=== PATIENT | male | born 1950 | race Caucasian/White ===

== ENCOUNTER 2017-12-21 12:02 | Outpatient (CLI) | payer MEDICARE, OTHER | END 2017-12-21 12:04 | LOC: CARD 12:02 | PROVIDERS: ATTEND Internal Medicine Cardiovascular Disease | DX: I48.91 Unspecified atrial fibrillation (principal); I27.20 Pulmonary hypertension, unspecified; I05.1 Rheumatic mitral insufficiency; I73.9 Peripheral vascular disease, unspecified; I10 Essential (primary) hypertension; N18.5 Chronic kidney disease, stage 5; I77.0 Arteriovenous fistula, acquired; I50.9 Heart failure, unspecified | CPT/HCPCS: G0463 ==

== ENCOUNTER 2018-10-25 20:12 | Emergency (ER) | payer MEDICARE, OTHER ==
--- NOTE | 2018-10-25 20:32 | ED Physician Documentation ---
Fall - HPI Stated Complaint: left hip/shoulder pain Chief Complaint: Fall Additional Information: Patient presents to ED with complaints of left hip and left shoulder pain after slipping on the ice while walking his dog earlier today. He denies hitting his head or loss of consciousness. He is on Coumadin for Afib. Onset: today Where: home Context: slipped (on ice) Associated Symptoms:: no loss of consciousness Location of Pain/Injury: L shoulder, hip Injury to Right Extremity: none Injury to Left Extremity: shoulder - ROS CONST: no problems NEURO: denies: dizziness MS/SKIN/LYMPH: denies: weakness, numbness, neck pain, back pain, leg swelling EYES/ENT: none CVS/RESP: denies: chest pain, shortness of breath GI/: denies: problems urinating, nausea, vomiting - PAST HX Past History: A-Fib, COPD Allergies/Adverse Reactions: Allergies Allergy/AdvReac Type Severity Reaction Status Date / Time NSAIDS (Non-Steroidal AdvReac Renal Verified 10/25/18 20:34 Anti-Inflamma Insufficiency Contrast AdvReac Itchy Skin Uncoded 10/25/18 20:34 Home Medications: Ambulatory Orders Medication Instructions Recorded Carvedilol [Coreg] 25 mg PO BID u2 09/20/13 Clonidine HCl 0.1 mg PO BID PRN u2 09/20/13 Diltiazem HCl [Diltiazem 24hr Cd] 180 mg PO DAILY av 09/20/13 Orphenadrine Citrate [Norflex] 100 mg PO BID PRN #30 tab 10/25/18 Warfarin Sodium [Coumadin] 5 mg PO D 10/25/18 - SOCIAL HX Smoking History: cigarettes, greater than 1 pack/day Alcohol Use: none Drug Use: none - FAMILY HX Family History: none - REVIEWED ASSESSMENTS Nursing Assessment Reviewed: Yes Vitals Reviewed: Yes Progress - Progress Progress: 2 Blood pressure elevated at 163/113. Patient states he has not taken his evening blood pressure meds yet. ED Results Lab/Radiology - Radiology Radiology Impressions: Three views left shoulder Clinical history: Fall. Pain. Findings: Examination left shoulder in multiple views fails to demonstrate evidence of fracture, dislocation or other bone or joint pathology. Electronically signed on Oct 25, 2018 9:20:16 PM BENZENE STILL UTILITY OPERATOR by: Vince Leahy Two views of left hip Clinical history: Fall. Pain. Findings: Examination left hip in AP and frog-leg lateral views fails to demonstrate evidence of fracture or dislocation. There are metallic seeds overlying the prostate. There is no lytic or blastic lesion. Vascular calcification is demonstrated. Impression: 1. No fracture. Electronically signed on Oct 25, 2018 9:21:16 PM BENZENE STILL UTILITY OPERATOR by: Vince Leahy - Orders Orders: ED Orders Category Date Time Status LT HIP 2VIEW COMPLETE [RAD] Stat Exams 10/25/18 Ordered SHOULDER 2 VIEWS OR MORE [RAD] Stat Exams 10/25/18 Ordered Fall Physical Exam - Physical Exam General Appearance: no acute distress, alert Head: non-tender, no swelling, no obvious injury Neck: non-tender, painless ROM Eye: ALEK ENT: nml external inspection Resp/CVS: chest non-tender, breath sounds nml, no resp. distress. No: rib tenderness Abdomen: soft, normal bowel sounds Neuro: oriented x3, motor nml Back: normal inspection, no CVA tenderness, no vertebral tenderness Extremities: atraumatic, pelvis stable, other (left hip pain) Joint: joints nml, Nml gait/weight bearing - Vesta Coma Score Eyes Open: Spontaneous Speech: Oriented Motor: Obeys Commands Discharge Clincal Impression: Fall Qualifiers: Encounter type: initial encounter Qualified Code(s): W19.XXXA - Unspecified fall, initial encounter Prescriptions: Orphenadrine Citrate [Norflex] 100 mg PO BID PRN #30 tab PRN Reason: Spasms Referrals: Aicha Lozoya MD [Primary Care Provider] - 2 Days Comments: 1. Apply ice/heat to affected area as needed 2. Keep active 3. Follow up with PCP within 1 week. Condition: Stable Disposition: 01 HOME, SELF-CARE Decision to Admit: NO Date of Decison to Admit: 10/25/18 Decision Time: 21:28
[2018-10-25] MEDS ORDERED: HYDROcodone /APAP 5/325 1 EACH TABLET PO ONE (20:35)
[2018-10-25] MEDS ORDERED: ORPHENADRINE CITRATE 60 MG/2 ML ML IM ONE (21:25)
--- NOTE | 2018-10-25 21:42 | Diagnostic Imaging Report ---
IDALIA FORD [facility] [address] [facility] [address] [id number] Report Submission Date: Oct 25, 2018 9:21:16 PM RAMP FLIGHT ATTENDANT Patient Study Name: AJ BOCANEGRA Date: Oct 25, 2018 8:40:06 PM RAMP FLIGHT ATTENDANT Modality Type: DX Gender: M Description: PELVIS : 52 Institution: [facility] Physician: IDALIA FORD Two views of left hip Clinical history: Fall. Pain. Findings: Examination left hip in AP and frog-leg lateral views fails to demonstrate evidence of fracture or dislocation. There are metallic seeds overlying the prostate. There is no lytic or blastic lesion. Vascular calcification is demonstrated. Impression: 1. No fracture. Electronically signed on Oct 25, 2018 9:21:16 PM RAMP FLIGHT ATTENDANT by: Vince BAUER
[2018-10-25 21:53] VITALS: BP 161/113
--- NOTE | 2018-10-26 05:28 | Diagnostic Imaging Report ---
IDALIA FORD [facility] [address] [facility] [address] [id number] Report Submission Date: Oct 25, 2018 9:20:16 PM PLAYGROUND EQUIPMENT ERECTOR Patient Study Name: AJ BOCANEGRA Date: Oct 25, 2018 8:31:56 PM PLAYGROUND EQUIPMENT ERECTOR Modality Type: DX Gender: M Description: SHOULDER : 52 Institution: [facility] Physician: IDALIA FORD Three views left shoulder Clinical history: Fall. Pain. Findings: Examination left shoulder in multiple views fails to demonstrate evidence of fracture, dislocation or other bone or joint pathology. Electronically signed on Oct 25, 2018 9:20:16 PM PLAYGROUND EQUIPMENT ERECTOR by: Vince BAUER
== END 2018-10-25 21:40 | disposition home or self-care (01) ==
LOC: ED 20:12
DX: M25.552 Pain in left hip (principal); M25.512 Pain in left shoulder; W00.9XXA Unspecified fall due to ice and snow, initial encounter; Y93.K1 Activity, walking an animal; Y92.009 Unspecified place in unspecified non-institutional (private) residence as the place of occurrence of the external cause
CPT/HCPCS: 73030; 73502; 96372; 99283; 99284; A9270; J2360

== ENCOUNTER 2019-12-04 20:11 | Emergency (ER) | payer MEDICARE, OTHER ==
--- NOTE | 2019-12-04 20:12 | ED Physician Documentation ---
General Adult - HISTORIAN Historian: patient - HPI Stated Complaint: voiding blood Chief Complaint: General Adult Onset: hours Timing: still present Severity: moderate Further Comments: yes (Pt is a 69 yo male who is voiding large amounts of blood. Pt is a dialysis pt with hx kidney transplant 10 years ago. Pt also has hx afib, HTN, and is on coumadin. 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 Large amont of blood on sidewalk outside ER door when pt got out of car.) - ROS CONST: weakness EYES/ENT: none CVS/RESP: other (tachycardia) MS/SKIN/LYMPH: none - PAST HX Past History: other (Hemodialysis, [facility] transplant 10 yrs ago in [place], [place], afib, HTN) Surgeries/Procedures: other (kidney transplant) Allergies/Adverse Reactions: Allergies Allergy/AdvReac Type Severity Reaction Status Date / Time NSAIDS (Non-Steroidal AdvReac Renal Verified 10/25/18 20:34 Anti-Inflamma Insufficiency Contrast AdvReac Itchy Skin Uncoded 10/25/18 20:34 Home Medications: Ambulatory Orders Medication Instructions Recorded Carvedilol [Coreg] 25 mg PO BID u2 09/20/13 Clonidine HCl 0.1 mg PO BID PRN u2 09/20/13 Diltiazem HCl [Diltiazem 24hr Cd] 180 mg PO DAILY av 09/20/13 Orphenadrine (Nf) [Norflex] 100 mg PO BID PRN #30 tab 10/25/18 Warfarin Sodium [Coumadin] 5 mg PO D 10/25/18 - SOCIAL HX Smoking History: other (unk) - FAMILY HX Family History: No - VITAL SIGNS Vital Signs: Vital Signs Temp Pulse Resp BP Pulse Ox 161/113 10/25/18 21:51 - REVIEWED ASSESSMENTS Nursing Assessment Reviewed: Yes Vitals Reviewed: Yes Progress - Progress Progress: NS 2 L IVF transfer to . Hosp. Dr. Correa - EKG/XRAY/CT EKG: rhythm (afib, tachycardia, VG=309, ST & T wave changes, non-specific.) General Adult Physical Exam - PHYSICAL EXAM GENERAL APPEARANCE: moderate distress EENT: pharynx normal NECK: normal inspection, supple RESPIRATORY: no resp distress, chest non-tender, breath sounds normal CVS: irregularly irregular rhy, tachycardia ABDOMEN: soft, normal bowel sounds, other (large volume hematuria) BACK: normal inspection, no CVA tenderness SKIN: pallor EXTREMITIES: non-tender, normal range of motion, no evidence of injury, no edema NEURO: oriented X3, motor nml, sensation nml Discharge Clincal Impression: massive hematuria Referrals: Aicha Lozoya MD [Primary Care Provider] - Condition: Fair Disposition: 02 XFER SHT-TRM HOSP Decision to Admit: NO Decision Time: 20:50
[2019-12-04] MEDS ORDERED: 0.9 % SODIUM CHLORIDE 1,000 ML IV ONE ×2 (20:20→20:31)
[2019-12-04] MEDS ORDERED: 0.9 % SODIUM CHLORIDE 2,000 ML IV ONE (20:30)
[2019-12-04 20:38] LABS: BASOPHILS % 0.6 % (0.0-1.5); NEUTROPHILS # 5.5 # k/uL (1.4-7.7)
[2019-12-04 21:49] VITALS: BP 115/64
== END 2019-12-04 20:55 | disposition short-term general hospital (02) ==
LOC: ED 20:11
DX: R31.9 Hematuria, unspecified (principal)
CPT/HCPCS: 80053; 84484; 85025; 85610; 85730; 93005; 96360; 99282; 99284; J7030; S1016